=== PATIENT | male | born 1965 | race American Indian/Alaskan Native ===

== ENCOUNTER 2016-11-03 08:17 | Emergency (ER) | payer SELFPAY ==
[2016-11-03] MEDS ORDERED: MOTRIN PO ONE (09:21)
[2016-11-03] MEDS ORDERED: FLEXERIL PO ONE (09:21)
--- NOTE | 2016-11-03 09:21 | Emergency Department Report ---
ED Back Pain/Injury HPI - General Chief Complaint: Back Pain/Injury Stated Complaint: BACK PAIN Time Seen by Provider: 11/03/16 08:38 Source: patient Limitations: No Limitations - History of Present Illness Initial Comments: 51-year-old male with past medical history none presents with complaint of 3-4 days of left-sided flank pain. Denies any dysuria no hematuria no nausea no vomiting no fever no chills no difficulty breathing. Denies any direct trauma. Works driving a forklift. Denies any rash MD Complaint: back pain Onset/Timin -: days(s) Similar Symptoms Previously: No Place: home Severity: moderate Severity scale (0 -10): 6 Quality: sharp, aching Consistency: intermittent Improves With: immobilization Worsens With: deep breaths/cough Context: while lifting, turning/twisting - Related Data Previous Rx's Medication Instructions Recorded Last Taken Type Cyclobenzaprine [Flexeril] 10 mg PO TID PRN #30 tablet 05/25/15 Unknown Rx Ibuprofen [Motrin] 800 mg PO Q8HR #30 tablet 05/25/15 Unknown Rx methylPREDNISolone [Medrol Dose 4 mg PO QDAY 6 Days 05/25/15 Unknown Rx Miah] traMADol [Ultram 50 MG tab] 50 mg PO Q6HR PRN #30 tablet 05/25/15 Unknown Rx Acetaminophen/Codeine [Tylenol 1 tab PO Q6H PRN #15 tab 11/03/16 Unknown Rx /Codeine # 3 tab] Ciprofloxacin HCl [Ciprofloxacin 500 mg PO Q12HR #14 tab 11/03/16 Unknown Rx TAB] Ibuprofen [Motrin] 600 mg PO Q8H PRN #25 tablet 11/03/16 Unknown Rx Allergies Allergy/AdvReac Type Severity Reaction Status Date / Time No Known Allergies Allergy Verified 09/17/14 10:41 ED Review of Systems ROS: Stated complaint: BACK PAIN Other details as noted in HPI Constitutional: denies: chills, fever Eyes: denies: eye pain, eye discharge, vision change ENT: denies: ear pain, throat pain Respiratory: denies: cough, shortness of breath, wheezing Cardiovascular: denies: chest pain, palpitations Endocrine: no symptoms reported Gastrointestinal: denies: abdominal pain, nausea, diarrhea Genitourinary: denies: urgency, dysuria Musculoskeletal: denies: back pain, joint swelling, arthralgia Skin: denies: rash, lesions Neurological: denies: headache, weakness, paresthesias Psychiatric: denies: anxiety, depression Hematological/Lymphatic: denies: easy bleeding, easy bruising ED Past Medical Hx - Past Medical History Previous Medical History?: No - Surgical History Past Surgical History?: Yes Hx Appendectomy: Yes Additional Surgical History: LEFT FOOT - Social History Smoking Status: Current Every Day Smoker Substance Use Type: Alcohol, Non Opiate Pain, Other - Medications Home Medications: Home Medications Medication Instructions Recorded Confirmed Last Taken Type Cyclobenzaprine [Flexeril] 10 mg PO TID PRN #30 tablet 05/25/15 Unknown Rx Ibuprofen [Motrin] 800 mg PO Q8HR #30 tablet 05/25/15 Unknown Rx methylPREDNISolone [Medrol Dose 4 mg PO QDAY 6 Days 05/25/15 Unknown Rx Miah] traMADol [Ultram 50 MG tab] 50 mg PO Q6HR PRN #30 tablet 05/25/15 Unknown Rx Acetaminophen/Codeine [Tylenol 1 tab PO Q6H PRN #15 tab 11/03/16 Unknown Rx /Codeine # 3 tab] Ciprofloxacin HCl [Ciprofloxacin 500 mg PO Q12HR #14 tab 11/03/16 Unknown Rx TAB] Ibuprofen [Motrin] 600 mg PO Q8H PRN #25 tablet 11/03/16 Unknown Rx ED Physical Exam - General Limitations: No Limitations General appearance: alert, in no apparent distress - Head Head exam: Present: atraumatic, normocephalic - Eye Eye exam: Present: normal appearance, PERRL, EOMI - ENT ENT exam: Present: mucous membranes moist - Neck Neck exam: Present: normal inspection - Respiratory Respiratory exam: Present: normal lung sounds bilaterally. Absent: respiratory distress - Cardiovascular Cardiovascular Exam: Present: regular rate, normal rhythm. Absent: systolic murmur, diastolic murmur, rubs, gallop - GI/Abdominal GI/Abdominal exam: Present: soft, normal bowel sounds - Rectal Rectal exam: Present: deferred - Extremities Exam Extremities exam: Present: normal inspection - Back Exam Back exam: Present: normal inspection, CVA tenderness (L) (mild left-sided CVA/ flank tenderness) - Neurological Exam Neurological exam: Present: alert, oriented X3, CN II-XII intact, normal gait - Psychiatric Psychiatric exam: Present: normal affect, normal mood - Skin Skin exam: Present: warm, dry, intact, normal color. Absent: rash ED Course Vital Signs 11/03/16 08:22 Temperature 97.7 F Pulse Rate 67 Respiratory 20 Rate Blood Pressure 147/96 O2 Sat by Pulse 99 Oximetry ED Medical Decision Making - Lab Data Result diagrams: 11/03/16 09:47 11/03/16 09:47 - Medical Decision Making A/P: Flank pain 1-CT incidentally shows a left sided 12th rib fracture. This is unusual as it is atraumatic in nature. Patient does not recall any direct trauma to his flank.No direct blunt trauma. Patient reports no falls 2-naproxen and Tylenol 3 when necessary 3-incentive spirometry 4-follow-up with primary care doctor 5- this patient has some blood in urine with mild suggestion of cystitis on CT treat with cipro Critical care attestation.: If time is entered above; I have spent that time in minutes in the direct care of this critically ill patient, excluding procedure time. ED Disposition Clinical Impression: Acute flank pain Broken rib Qualifiers: Encounter type: initial encounter Rib fracture type: single rib Fracture type: closed Laterality: left Qualified Code(s): S22.32XA - Fracture of one rib, left side, initial encounter for closed fracture Disposition: DISCHARGED TO HOME OR SELFCARE Is pt being admited?: No Does the pt Need Aspirin: No Condition: Stable Instructions: Rib Fracture (ED), Urinary Tract Infection in Men (ED) Prescriptions: Acetaminophen/Codeine [Tylenol /Codeine # 3 tab] 1 tab PO Q6H PRN #15 tab PRN Reason: Pain Ciprofloxacin HCl [Ciprofloxacin TAB] 500 mg PO Q12HR #14 tab Ibuprofen [Motrin] 600 mg PO Q8H PRN #25 tablet PRN Reason: Pain Referrals: TOBY MACARIO MD [Staff Physician] - 3-5 Days [facility] [Provider Group] - 3-5 Days Forms: Accompanied Note, Work/School Release Form(ED) Time of Disposition: 10:44
[2016-11-03 09:31] LABS: Bilirubin,Urine NEG (Negative); Blood,Urine SM (Negative); Ketones,Urine NEG (Negative); Leukocyte Esterase,Urine NEG (Negative); Mucus,Urine FEW /HPF; Nitrite,Urine NEG (Negative); Protein,Urine <15 mg/dL mg/dL (Negative); Urobilinogen,Urine < 2.0 mg/dL (<2.0); WBC,Urine < 1.0 /HPF (0.0-6.0)
[2016-11-03 10:13] LABS: Basophils % (Auto) 1.1 % (0.0-1.8); Eosinophils % (Auto) 2.3 % (0.0-4.3); Hematocrit 44.2 % (35.5-45.6); Hemoglobin 14.6 gm/dl (11.8-15.2); Mean Corpuscular HGB Conc 33 % (32-34); Mean Corpuscular Hemoglobin 31 pg (28-32); Mean Corpuscular Volume 95 fl (84-94); Platelet Count 234 K/mm3 (140-440); Red Blood Count 4.65 M/mm3 (3.65-5.03); Red Cell Distribution Width 13.9 % (13.2-15.2); White Blood Count 6.1 K/mm3 (4.5-11.0)
--- NOTE | 2016-11-03 10:13 | Cat Scan Report ---
CT OF THE ABDOMEN AND PELVIS WITHOUT CONTRAST HISTORY: Left flank pain, hematuria. TECHNIQUE: Helical CT without contrast. Sagittal and coronal reformatted images. FINDINGS: A minimally displaced left posterior 12th rib fracture is identified. No additional acute fracture. The bladder is partially empty but there is suggestion of diffuse bladder wall thickening. Correlate for a cystitis. Within the limits of a noncontrast exam, the remaining abdominal and pelvic viscera are within normal limits. The liver, biliary system, pancreas, spleen, kidneys, and adrenal glands are unremarkable. The bowel loops are normal caliber and wall thickness. A few small scattered diverticula are noted in the descending colon. The appendix has been surgically removed. The aorta is normal caliber. No ascites, bulky adenopathy or inflammatory changes. The lung bases are clear. Normal heart size. IMPRESSION: Fracture, left posterior 12th rib. Mild diffuse bladder wall thickening is suggested. Correlate for a cystitis. There is no evidence for nephrolithiasis. Minimal diverticulosis of the distal colon.
[2016-11-03 10:23] LABS: Anion Gap 17 mmol/L; BUN/Creatinine Ratio 18.75; Blood Urea Nitrogen 15 mg/dL (9-20); Calcium 9.6 mg/dL (8.4-10.2); Carbon Dioxide 29 mmol/L (22-30); Chloride 98.7 mmol/L (98-107); Creatine Kinase 139 units/L (55-170); Glucose 99 mg/dL (75-100); Potassium 4.8 mmol/L (3.6-5.0); Sodium 140 mmol/L (137-145)
[2016-11-03 11:25] VITALS: BP 142/90
== END 2016-11-03 11:24 | disposition home or self-care (01) ==
LOC: ED 08:17
DX: S22.32XA Fracture of one rib, left side, initial encounter for closed fracture (principal); R10.9 Unspecified abdominal pain; F17.200 Nicotine dependence, unspecified, uncomplicated; X58.XXXA Exposure to other specified factors, initial encounter; Y93.9 Activity, unspecified; Y99.9 Unspecified external cause status; Y92.9 Unspecified place or not applicable
CPT/HCPCS: 36415; 74176; 80048; 81001; 82550; 85025; 87086

== ENCOUNTER 2017-01-28 07:52 | Emergency (ER) | payer SELFPAY ==
[2017-01-28 08:05] VITALS: BP 155/102
[2017-01-28] MEDS ORDERED: MOTRIN PO ONE (09:12)
--- NOTE | 2017-01-28 09:16 | Emergency Department Report ---
ED ENT HPI - General Chief complaint: Dental/Oral Stated complaint: SWOLLEN GUMS/PAIN Time Seen by Provider: 01/28/17 08:21 Source: patient Mode of arrival: Ambulatory Limitations: No Limitations - History of Present Illness Initial comments: This is a 51-year-old male nontoxic, well nourished in appearance, no acute signs of distress to [facility] ED complaining of upper gum pain 4-5 days. Patient stated that his 4 days ago made bread that was toasted and hard and patient started to eat with dentures on. Upon eating patient experienced pain but did not cause him to stop eating. Patient then started to develop pain to the gum area one day after. Patient denies any pus, drainage, fever, chills, nausea, swelling, vomiting, stiff neck, facial swelling, fever, chills, chest pain or shortness of breath. Patient denies any allergies. No significant past medical history. MD complaint: other -: Gradual, days(s) (4) Severity: mild Severity scale (0 -10): 5 Quality: aching Consistency: constant Improves with: none Worsens with: none Associated Symptoms: gum swelling. denies: fever, cough, toothache, pain with swallowing, sore throat, tinnitus, hearing loss, discharge from ear, rhinorrhea (pain) - Related Data Previous Rx's Medication Instructions Recorded Last Taken Type Cyclobenzaprine [Flexeril] 10 mg PO TID PRN #30 tablet 05/25/15 Unknown Rx Ibuprofen [Motrin] 800 mg PO Q8HR #30 tablet 05/25/15 Unknown Rx methylPREDNISolone [Medrol Dose 4 mg PO QDAY 6 Days 05/25/15 Unknown Rx Miah] traMADol [Ultram 50 MG tab] 50 mg PO Q6HR PRN #30 tablet 05/25/15 Unknown Rx Acetaminophen/Codeine [Tylenol 1 tab PO Q6H PRN #15 tab 11/03/16 Unknown Rx /Codeine # 3 tab] Ciprofloxacin HCl [Ciprofloxacin 500 mg PO Q12HR #14 tab 11/03/16 Unknown Rx TAB] Ibuprofen [Motrin] 600 mg PO Q8H PRN #25 tablet 11/03/16 Unknown Rx Ibuprofen [Motrin 600 MG tab] 600 mg PO Q8H PRN #20 tablet 01/28/17 Unknown Rx Allergies Allergy/AdvReac Type Severity Reaction Status Date / Time No Known Allergies Allergy Verified 09/17/14 10:41 ED Dental HPI - General Chief complaint: Dental/Oral Stated complaint: SWOLLEN GUMS/PAIN Time Seen by Provider: 01/28/17 08:21 Source: patient Mode of arrival: Ambulatory Limitations: No Limitations - Related Data Previous Rx's Medication Instructions Recorded Last Taken Type Cyclobenzaprine [Flexeril] 10 mg PO TID PRN #30 tablet 05/25/15 Unknown Rx Ibuprofen [Motrin] 800 mg PO Q8HR #30 tablet 05/25/15 Unknown Rx methylPREDNISolone [Medrol Dose 4 mg PO QDAY 6 Days 05/25/15 Unknown Rx Miah] traMADol [Ultram 50 MG tab] 50 mg PO Q6HR PRN #30 tablet 05/25/15 Unknown Rx Acetaminophen/Codeine [Tylenol 1 tab PO Q6H PRN #15 tab 11/03/16 Unknown Rx /Codeine # 3 tab] Ciprofloxacin HCl [Ciprofloxacin 500 mg PO Q12HR #14 tab 11/03/16 Unknown Rx TAB] Ibuprofen [Motrin] 600 mg PO Q8H PRN #25 tablet 11/03/16 Unknown Rx Ibuprofen [Motrin 600 MG tab] 600 mg PO Q8H PRN #20 tablet 01/28/17 Unknown Rx Allergies Allergy/AdvReac Type Severity Reaction Status Date / Time No Known Allergies Allergy Verified 09/17/14 10:41 ED Review of Systems ROS: Stated complaint: SWOLLEN GUMS/PAIN Other details as noted in HPI Constitutional: denies: chills, fever Eyes: denies: eye pain, eye discharge, vision change ENT: denies: ear pain, throat pain Respiratory: denies: cough, shortness of breath, wheezing Cardiovascular: denies: chest pain, palpitations Endocrine: no symptoms reported Gastrointestinal: denies: abdominal pain, nausea, diarrhea Genitourinary: denies: urgency, dysuria Musculoskeletal: denies: back pain, joint swelling, arthralgia Skin: denies: rash, lesions Neurological: denies: headache, weakness, paresthesias Psychiatric: denies: anxiety, depression Hematological/Lymphatic: denies: easy bleeding, easy bruising ED Past Medical Hx - Past Medical History Previous Medical History?: No - Surgical History Past Surgical History?: Yes Hx Appendectomy: Yes Additional Surgical History: LEFT FOOT - Social History Smoking Status: Current Every Day Smoker Substance Use Type: Alcohol - Medications Home Medications: Home Medications Medication Instructions Recorded Confirmed Last Taken Type Cyclobenzaprine [Flexeril] 10 mg PO TID PRN #30 tablet 05/25/15 Unknown Rx Ibuprofen [Motrin] 800 mg PO Q8HR #30 tablet 05/25/15 Unknown Rx methylPREDNISolone [Medrol Dose 4 mg PO QDAY 6 Days 05/25/15 Unknown Rx Miah] traMADol [Ultram 50 MG tab] 50 mg PO Q6HR PRN #30 tablet 05/25/15 Unknown Rx Acetaminophen/Codeine [Tylenol 1 tab PO Q6H PRN #15 tab 11/03/16 Unknown Rx /Codeine # 3 tab] Ciprofloxacin HCl [Ciprofloxacin 500 mg PO Q12HR #14 tab 11/03/16 Unknown Rx TAB] Ibuprofen [Motrin] 600 mg PO Q8H PRN #25 tablet 11/03/16 Unknown Rx Ibuprofen [Motrin 600 MG tab] 600 mg PO Q8H PRN #20 tablet 01/28/17 Unknown Rx ED Physical Exam - General Limitations: No Limitations General appearance: alert, in no apparent distress - Head Head exam: Present: atraumatic, normocephalic, normal inspection - Eye Eye exam: Present: normal appearance, PERRL, EOMI. Absent: scleral icterus, conjunctival injection, nystagmus, periorbital swelling, periorbital tenderness Pupils: Present: normal accommodation - ENT ENT exam: Present: normal exam, normal orophraynx, mucous membranes moist, TM's normal bilaterally, normal external ear exam - Expanded ENT Exam Expanded Mouth exam: Present: normal external inspection, tongue normal. Absent: drooling, trismus, muffled voice, tongue elevation, laceration Teeth exam: Present: normal inspection, other (no swelling noted to mouth or gums. No signs of infection noted. No gingivitis noted. No open abrasion or laceration noted.). Absent: dental caries, fractured tooth #, dental tenderness #, gingival enlargement Throat exam: Positive: normal inspection. Negative: tonsillar erythema, tonsillomegaly, tonsillar exudate, R peritonsillar mass, L peritonsillar mass - Neck Neck exam: Present: normal inspection, full ROM. Absent: tenderness, meningismus, lymphadenopathy, thyromegaly - Respiratory Respiratory exam: Present: normal lung sounds bilaterally. Absent: respiratory distress, wheezes, rales, rhonchi, stridor, chest wall tenderness, accessory muscle use, decreased breath sounds, prolonged expiratory - Cardiovascular Cardiovascular Exam: Present: regular rate, normal rhythm, normal heart sounds. Absent: bradycardia, tachycardia, irregular rhythm, systolic murmur, diastolic murmur, rubs, gallop - GI/Abdominal GI/Abdominal exam: Present: soft, normal bowel sounds. Absent: distended, tenderness, guarding, rebound, rigid - Rectal Rectal exam: Present: deferred - Extremities Exam Extremities exam: Present: normal inspection, full ROM, normal capillary refill. Absent: tenderness, pedal edema, joint swelling, calf tenderness - Back Exam Back exam: Present: normal inspection, full ROM. Absent: tenderness, CVA tenderness (R), CVA tenderness (L), muscle spasm, paraspinal tenderness, vertebral tenderness, rash noted - Neurological Exam Neurological exam: Present: alert, oriented X3, CN II-XII intact, normal gait, reflexes normal - Psychiatric Psychiatric exam: Present: normal affect, normal mood - Skin Skin exam: Present: warm, dry, intact, normal color. Absent: rash ED Course Vital Signs 01/28/17 08:03 Temperature 98.9 F Pulse Rate 68 Respiratory 16 Rate Blood Pressure 155/102 O2 Sat by Pulse 99 Oximetry - Reevaluation(s) Reevaluation #1: 01/28/17 09:18 Patient is able to speak full sentences with no signs of distress noted. ED Medical Decision Making - Medical Decision Making ED course; this is a 51-year-old male that presents with irritative pain of the gingiva Patient was examined by myself. There is no signs of inflammation, pus, drainage, or any signs of infection such as gingivitis. I notified and instructed patient that pain is related to dentures irritating the gingiva. I struck the patient to good oral hygiene and signs/symptoms such as swelling, pus , drainage, fever, chills, facial swelling, headache, blurry vision, chest pain or short of breath return to emergency room as soon as possible. Patient was also referred to a dentist to follow-up in 3-5 days. At time time of discharge, the patient does not seem toxic or ill in appearance. No acute signs of distress noted. Patient agrees to discharge treatment plan of care. No further questions noted by the patient. Critical care attestation.: If time is entered above; I have spent that time in minutes in the direct care of this critically ill patient, excluding procedure time. ED Disposition Clinical Impression: Pain of gingiva Disposition: TO HOME OR SELFCARE Is pt being admited?: No Does the pt Need Aspirin: No Condition: Stable Instructions: Ibuprofen (By mouth) Additional Instructions: Keep good oral hygiene and signs/symptoms such as swelling, pus, drainage, fever, chills, facial swelling, headache, blurry vision, chest pain or short of breath return to emergency room as soon as possible. Follow-up with dentist in 3-5 days. Take ibuprofen as prescribed for pain. Prescriptions: Ibuprofen [Motrin 600 MG tab] 600 mg PO Q8H PRN #20 tablet PRN Reason: Pain Referrals: PRIMARY CARE,MD [Primary Care Provider] - 3-5 Days [facility] [Outside] - 3-5 Days [facility] [Outside] - 3-5 Days Forms: Work/School Release Form(ED)
== END 2017-01-28 09:28 | disposition home or self-care (01) ==
LOC: ED 07:52
DX: K06.8 Other specified disorders of gingiva and edentulous alveolar ridge (principal); F17.200 Nicotine dependence, unspecified, uncomplicated
CPT/HCPCS: 99282

== ENCOUNTER 2018-11-19 16:31 | Emergency (ER) | payer SELFPAY ==
--- NOTE | 2018-11-19 16:37 | Emergency Department Report ---
Blank Doc - Documentation Documentation: This is a 53-year-old male that presents with rash and itching. No angioedema. No SOB. This initial assessment/diagnostic orders/clinical plan/treatment(s) is/are subject to change based on patient's health status, clinical progression and re- assessment by fellow clinical providers in the ED. Further treatment and workup at subsequent clinical providers discretion. Patient/guardians urged not to elope from the ED as their condition may be serious if not clinically assessed and managed. Initial orders include: 1- Patient sent to [facility] for further evaluation and treatment
[2018-11-19 16:38] VITALS: BP 144/89
--- NOTE | 2018-11-19 19:13 | Emergency Department Report ---
ED Allergic Reaction HPI - General Chief complaint: Allergic Reaction Stated complaint: SPIDER BITE/ALLERGIC REACTION Time Seen by Provider: 11/19/18 16:36 Source: patient Mode of arrival: Ambulatory Limitations: No Limitations - History of Present Illness Initial Comments: This is a 53-year-old -[place] male presents to the emergency room with a pruritic rash for 2-3 days. Patient states he was seen in an urgent care once symptoms originally started. He think he possibly got bitten by a spider and multiple spots. Patient states when he went to urgent care he was prescribed Bactrim and triamcinolone which improved abscesses but he continues to have itching with a burning sensation. He denies difficulty swallowing, tongue swelling, chest pain, dyspnea, erythema, or numbness or tingling. MD Complaint: allergic reaction Onset/Timin -: days(s) Exposure: insect bite Symptoms: rash, itching. denies: facial swelling, lip swelling, difficulty swallowing, difficulty breathing, orolingual swelling, hoarseness, syncopy, dizziness, nausea, vomiting, abdominal pain Severity: moderate Treatment Prior to Arrival: topical medicine, other (oral antibiotics) Previous Allergy History: none - Related Data Previous Rx's Medication Instructions Recorded Last Taken Type Cyclobenzaprine [Flexeril] 10 mg PO TID PRN #30 tablet 05/25/15 Unknown Rx Ibuprofen [Motrin] 800 mg PO Q8HR #30 tablet 05/25/15 Unknown Rx methylPREDNISolone [Medrol Dose 4 mg PO QDAY 6 Days pack 05/25/15 Unknown Rx Miah] traMADol [Ultram 50 MG tab] 50 mg PO Q6HR PRN #30 tablet 05/25/15 Unknown Rx Acetaminophen/Codeine [Tylenol 1 tab PO Q6H PRN #15 tab 11/03/16 Unknown Rx /Codeine # 3 tab] Ciprofloxacin HCl [Ciprofloxacin 500 mg PO Q12HR #14 tab 11/03/16 Unknown Rx TAB] Ibuprofen [Motrin] 600 mg PO Q8H PRN #25 tablet 11/03/16 Unknown Rx Ibuprofen [Motrin 600 MG tab] 600 mg PO Q8H PRN #20 tablet 01/28/17 Unknown Rx hydrOXYzine PAMOATE [Vistaril] 25 mg PO Q6HR PRN #20 capsule 11/19/18 Unknown Rx methylPREDNISolone [Medrol] 4 mg PO DAILY #1 tab.ds.pk 11/19/18 Unknown Rx Allergies Allergy/AdvReac Type Severity Reaction Status Date / Time No Known Allergies Allergy Verified 09/17/14 10:41 ED Review of Systems ROS: Stated complaint: SPIDER BITE/ALLERGIC REACTION Other details as noted in HPI Constitutional: denies: chills, fever Respiratory: denies: cough, shortness of breath, wheezing Cardiovascular: denies: chest pain, palpitations Gastrointestinal: denies: abdominal pain, nausea, diarrhea Musculoskeletal: denies: back pain, joint swelling, arthralgia Skin: rash. denies: lesions Neurological: denies: headache, weakness, paresthesias Psychiatric: denies: anxiety, depression ED Past Medical Hx - Past Medical History Previous Medical History?: No - Surgical History Past Surgical History?: Yes Hx Appendectomy: Yes Additional Surgical History: LEFT FOOT - Social History Smoking Status: Current Every Day Smoker Substance Use Type: None - Medications Home Medications: Home Medications Medication Instructions Recorded Confirmed Last Taken Type Cyclobenzaprine [Flexeril] 10 mg PO TID PRN #30 tablet 05/25/15 Unknown Rx Ibuprofen [Motrin] 800 mg PO Q8HR #30 tablet 05/25/15 Unknown Rx methylPREDNISolone [Medrol Dose 4 mg PO QDAY 6 Days pack 05/25/15 Unknown Rx Miah] traMADol [Ultram 50 MG tab] 50 mg PO Q6HR PRN #30 tablet 05/25/15 Unknown Rx Acetaminophen/Codeine [Tylenol 1 tab PO Q6H PRN #15 tab 11/03/16 Unknown Rx /Codeine # 3 tab] Ciprofloxacin HCl [Ciprofloxacin 500 mg PO Q12HR #14 tab 11/03/16 Unknown Rx TAB] Ibuprofen [Motrin] 600 mg PO Q8H PRN #25 tablet 11/03/16 Unknown Rx Ibuprofen [Motrin 600 MG tab] 600 mg PO Q8H PRN #20 tablet 01/28/17 Unknown Rx hydrOXYzine PAMOATE [Vistaril] 25 mg PO Q6HR PRN #20 capsule 11/19/18 Unknown Rx methylPREDNISolone [Medrol] 4 mg PO DAILY #1 tab.ds.pk 11/19/18 Unknown Rx ED Physical Exam - General Limitations: No Limitations General appearance: alert, in no apparent distress, obese - ENT ENT exam: Present: normal orophraynx (uvula midline), mucous membranes moist - Respiratory Respiratory exam: Present: normal lung sounds bilaterally. Absent: respiratory distress - Cardiovascular Cardiovascular Exam: Present: regular rate, normal rhythm. Absent: systolic murmur, diastolic murmur, rubs, gallop - GI/Abdominal GI/Abdominal exam: Present: soft, normal bowel sounds - Neurological Exam Neurological exam: Present: alert, oriented X3, normal gait - Psychiatric Psychiatric exam: Present: normal affect, normal mood - Skin Skin exam: Present: warm, dry, intact, normal color, rash (erythematous maculopapular rash to bilateral upper extremity and bilateral lower extremity, blanchable), erythema ED Course Vital Signs 11/19/18 16:36 Temperature 98.1 F Pulse Rate 78 Respiratory 18 Rate Blood Pressure 144/89 O2 Sat by Pulse 98 Oximetry ED Medical Decision Making - Medical Decision Making Patient was examined by me. Vitals are normal and patient is in no acute distress. Given dexamethasone 8 mg IM while in the ER. Findings are susceptible of allergic reaction to insect. On focal exam negative or oropharyngeal swelling. Patient informed of results. Instructed to continue taking Bactrim. Start Medrol Dosepak and Vistaril. Plan discussed with patient to discharge home and treat outpatient. He agrees with ER plan. Patient discharged home in stable condition. Follow up with PCP in 2-3 days. Critical care attestation.: If time is entered above; I have spent that time in minutes in the direct care of this critically ill patient, excluding procedure time. ED Disposition Clinical Impression: Allergic reaction to insect bite, Pruritic rash Insect bite Qualifiers: Encounter type: initial encounter Site of insect bite: upper arm Laterality: unspecified laterality Qualified Code(s): S40.869A - Insect bite (nonvenomous) of unspecified upper arm, initial encounter; W57.XXXA - Bitten or stung by nonvenomous insect and other nonvenomous arthropods, initial encounter Disposition: DC-01 TO HOME OR SELFCARE Is pt being admited?: No Does the pt Need Aspirin: No Condition: Stable Instructions: Insect Bite or Sting (ED) Additional Instructions: Continue taking Bactrim antibiotic prescribed from urgent care. Return to the emergency room is difficulty swallowing, swelling, redness, or increased itching. Prescriptions: methylPREDNISolone [Medrol] 4 mg PO DAILY #1 tab.ds.pk hydrOXYzine PAMOATE [Vistaril] 25 mg PO Q6HR PRN #20 capsule PRN Reason: Itching Referrals: ANATOLIY CABA MD [Primary Care Provider] - 3-5 Days [facility] [Outside] - 3-5 Days [facility] [Outside] - 3-5 Days Forms: Work/School Release Form(ED) Time of Disposition: 19:17
[2018-11-19] MEDS ORDERED: DECADRON IM ONE (19:18)
== END 2018-11-19 19:41 | disposition home or self-care (01) ==
LOC: ED 16:31
DX: S40.869A Insect bite (nonvenomous) of unspecified upper arm, initial encounter (principal); W57.XXXA Bitten or stung by nonvenomous insect and other nonvenomous arthropods, initial encounter; F17.200 Nicotine dependence, unspecified, uncomplicated; Z91.038 Other insect allergy status; Z90.89 Acquired absence of other organs; Y93.89 Activity, other specified; Y92.89 Other specified places as the place of occurrence of the external cause; Y99.8 Other external cause status
CPT/HCPCS: 96372; 99282; J1100

== ENCOUNTER 2019-02-25 13:20 | Emergency (ER) | payer SELFPAY ==
[2019-02-25 13:36] VITALS: BP 136/89
--- NOTE | 2019-02-25 13:40 | Emergency Department Report ---
ED Eye Problem HPI - General Chief complaint: Eye Problems Stated complaint: (L) EYE PAIN Time Seen by Provider: 02/25/19 13:35 Source: patient Mode of arrival: Ambulatory Limitations: No Limitations - History of Present Illness Initial comments: pt is a 53 yo male who presents to the ED right eye pain and erythema that began three days ago. pt presents with yellow/green drainage. having itching and burning of the eye. Pt does not wear contacts. no vision changes. did not get anything in the eye. no sick contacts/. has been rubbing the eye frequently. - Related Data Previous Rx's Medication Instructions Recorded Last Taken Type Cyclobenzaprine [Flexeril] 10 mg PO TID PRN #30 tablet 05/25/15 Unknown Rx Ibuprofen [Motrin] 800 mg PO Q8HR #30 tablet 05/25/15 Unknown Rx methylPREDNISolone [Medrol Dose 4 mg PO QDAY 6 Days pack 05/25/15 Unknown Rx Miah] traMADol [Ultram 50 MG tab] 50 mg PO Q6HR PRN #30 tablet 05/25/15 Unknown Rx Acetaminophen/Codeine [Tylenol 1 tab PO Q6H PRN #15 tab 11/03/16 Unknown Rx /Codeine # 3 tab] Ciprofloxacin HCl [Ciprofloxacin 500 mg PO Q12HR #14 tab 11/03/16 Unknown Rx TAB] Ibuprofen [Motrin] 600 mg PO Q8H PRN #25 tablet 11/03/16 Unknown Rx Ibuprofen [Motrin 600 MG tab] 600 mg PO Q8H PRN #20 tablet 01/28/17 Unknown Rx hydrOXYzine PAMOATE [Vistaril] 25 mg PO Q6HR PRN #20 capsule 11/19/18 Unknown Rx methylPREDNISolone [Medrol] 4 mg PO DAILY #1 tab.ds.pk 11/19/18 Unknown Rx Erythromycin [Erythromycin Ophth 1 applic OS QID 5 Days #1 tube 02/25/19 Unknown Rx Oint] Allergies Allergy/AdvReac Type Severity Reaction Status Date / Time No Known Allergies Allergy Verified 02/25/19 13:20 ED Review of Systems ROS: Stated complaint: (L) EYE PAIN Other details as noted in HPI Comment: All other systems reviewed and negative ED Past Medical Hx - Past Medical History Previous Medical History?: No - Surgical History Hx Appendectomy: Yes Additional Surgical History: LEFT FOOT - Social History Smoking Status: Unknown if ever smoked Substance Use Type: None - Medications Home Medications: Home Medications Medication Instructions Recorded Confirmed Last Taken Type Cyclobenzaprine [Flexeril] 10 mg PO TID PRN #30 tablet 05/25/15 Unknown Rx Ibuprofen [Motrin] 800 mg PO Q8HR #30 tablet 05/25/15 Unknown Rx methylPREDNISolone [Medrol Dose 4 mg PO QDAY 6 Days pack 05/25/15 Unknown Rx Miah] traMADol [Ultram 50 MG tab] 50 mg PO Q6HR PRN #30 tablet 05/25/15 Unknown Rx Acetaminophen/Codeine [Tylenol 1 tab PO Q6H PRN #15 tab 11/03/16 Unknown Rx /Codeine # 3 tab] Ciprofloxacin HCl [Ciprofloxacin 500 mg PO Q12HR #14 tab 11/03/16 Unknown Rx TAB] Ibuprofen [Motrin] 600 mg PO Q8H PRN #25 tablet 11/03/16 Unknown Rx Ibuprofen [Motrin 600 MG tab] 600 mg PO Q8H PRN #20 tablet 01/28/17 Unknown Rx hydrOXYzine PAMOATE [Vistaril] 25 mg PO Q6HR PRN #20 capsule 11/19/18 Unknown Rx methylPREDNISolone [Medrol] 4 mg PO DAILY #1 tab.ds.pk 11/19/18 Unknown Rx Erythromycin [Erythromycin Ophth 1 applic OS QID 5 Days #1 tube 02/25/19 Unknown Rx Oint] ED Physical Exam - General Limitations: No Limitations General appearance: alert, in no apparent distress - Head Head exam: Present: atraumatic, normocephalic - Eye Eye exam: Present: conjunctival injection (left), other (small erythematous area of swelling to the left upper eyelid consistent with horedeolum) - ENT ENT exam: Present: mucous membranes moist - Respiratory Respiratory exam: Present: normal lung sounds bilaterally. Absent: respiratory distress, wheezes, rales, rhonchi, stridor, chest wall tenderness, accessory muscle use, decreased breath sounds, prolonged expiratory - Cardiovascular Cardiovascular Exam: Present: regular rate, normal rhythm, normal heart sounds. Absent: systolic murmur, diastolic murmur, rubs, gallop - Neurological Exam Neurological exam: Present: alert, oriented X3 - Psychiatric Psychiatric exam: Present: normal affect, normal mood - Skin Skin exam: Present: warm, dry, intact ED Course Vital Signs 08/21/19 13:26 Temperature 98.2 F Pulse Rate 90 Respiratory 18 Rate Blood Pressure 136/89 O2 Sat by Pulse 97 Oximetry ED Medical Decision Making - Medical Decision Making pt is a 53 yo male who presents to the ED right eye pain and erythema that began three days ago. pt presents with yellow/green drainage. having itching and burning of the eye. Pt does not wear contacts. no vision changes. did not get anything in the eye. no sick contacts/. has been rubbing the eye frequently. no allergies. vitals are normal. on exam: small erythematous area of swelling to the left upper eyelid consistent with horedeolum, left conjunctival injection consistent with conjunctivitis. pt given prescription for erythromycin. advised pt to please use medication as prescribed. please use warm compresses three times a day. please wash the eyelid and your hands frequently. if symptoms do not improve please see an trauma nurse. return to the emergency room for any new or worsening symptoms. - Differential Diagnosis blepharitis, conjunctivitis, chalazion, hordeolum Critical care attestation.: If time is entered above; I have spent that time in minutes in the direct care of this critically ill patient, excluding procedure time. ED Disposition Clinical Impression: Hordeolum Qualifiers: Hordeolum type: internum Laterality: left Eyelid: upper Qualified Code(s): H00.024 - Hordeolum internum left upper eyelid Conjunctivitis Qualifiers: Conjunctivitis type: acute Acute conjunctivitis type: unspecified Laterality: left Qualified Code(s): H10.32 - Unspecified acute conjunctivitis, left eye Disposition: DC- TO HOME OR SELFCARE Is pt being admited?: No Does the pt Need Aspirin: No Condition: Stable Instructions: Conjunctivitis (ED), Stye (ED) Additional Instructions: please use medication as prescribed. please use warm compresses three times a day. please wash the eyelid and your hands frequently. if symptoms do not improve please see an trauma nurse. return to the emergency room for any new or worsening symptoms. Prescriptions: Erythromycin [Erythromycin Ophth Oint] 1 applic OS QID 5 Days #1 tube Referrals: VINAY SORENSEN MD [Staff Physician] - as needed TURNER ANDUJAR MD [Staff Physician] - as needed Time of Disposition: 13:48 Print Language: SWEDISH
== END 2019-02-25 13:59 | disposition home or self-care (01) ==
LOC: ED 13:20
DX: H00.014 Hordeolum externum left upper eyelid (principal); H10.9 Unspecified conjunctivitis; Z90.49 Acquired absence of other specified parts of digestive tract; Z79.899 Other long term (current) drug therapy

== ENCOUNTER 2020-04-20 13:16 | Emergency (ER) | payer OTHER ==
[2020-04-20 14:01] VITALS: BP 177/121
--- NOTE | 2020-04-20 15:13 | XRay Report ---
CHEST 2 VIEWS INDICATION: SOB, cough. COMPARISON: None FINDINGS: Support devices: None. Heart: Within normal limits. Lungs/pleura: No acute air space or interstitial disease. No pneumothorax. Additional findings: None. IMPRESSION: No acute findings. Signer Name: Mario Alberto Ackerman Jr, MD Signed: 04/20/2020 3:08 PM Workstation Name: [id number]
--- NOTE | 2020-04-20 16:14 | Emergency Department Report ---
- General Chief Complaint: Upper Respiratory Infection Stated Complaint: SOB/COUGH/SNEEZING Source: patient Mode of arrival: Ambulatory Limitations: No Limitations - History of Present Illness Initial Comments: pt is a 54 yo male who presents to the ED with c/o productive cough that began 3 days ago. he has associated mucus production. He states that he is also been having sneezing, chest discomfort after frequent coughing, diarrhea. He denies any rhinorrhea, fever, nausea, vomiting, shortness of breath, sore throat, ear pain. He denies any known sick contacts. He denies any recent travel. No past medical history. - Related Data Previous Rx's Medication Instructions Recorded Last Taken Type Cyclobenzaprine [Flexeril] 10 mg PO TID PRN #30 tablet 05/25/15 Unknown Rx Ibuprofen [Motrin] 800 mg PO Q8HR #30 tablet 05/25/15 Unknown Rx methylPREDNISolone [Medrol Dose 4 mg PO QDAY 6 Days pack 05/25/15 Unknown Rx Cynthia] traMADoL [Ultram 50 MG tab] 50 mg PO Q6HR PRN #30 tablet 05/25/15 Unknown Rx Acetaminophen/Codeine [Tylenol 1 tab PO Q6H PRN #15 tab 11/03/16 Unknown Rx /Codeine # 3 tab] Ciprofloxacin HCl [Ciprofloxacin 500 mg PO Q12HR #14 tab 11/03/16 Unknown Rx TAB] Ibuprofen [Motrin] 600 mg PO Q8H PRN #25 tablet 11/03/16 Unknown Rx Ibuprofen [Motrin 600 MG tab] 600 mg PO Q8H PRN #20 tablet 01/28/17 Unknown Rx hydrOXYzine PAMOATE [Vistaril] 25 mg PO Q6HR PRN #20 capsule 11/19/18 Unknown Rx methylPREDNISolone [Medrol] 4 mg PO DAILY #1 tab.ds.pk 11/19/18 Unknown Rx Erythromycin [Erythromycin Ophth 1 applic OS QID 5 Days #1 tube 02/25/19 Unknown Rx Oint] Albuterol Sulfate [Proventil Hfa] 6.7 gm IH TID PRN #1 hfa.aer.ad 04/20/20 Unknown Rx Azithromycin [Zithromax Z-CYNTHIA] 250 mg PO DAILY 5 Days #6 tablet 04/20/20 Unknown Rx Benzonatate [Tessalon Perles] 100 mg PO Q8HR PRN #10 capsule 04/20/20 Unknown Rx Prednisone [predniSONE 10 mg 10 mg PO .TAPER #1 tab.ds.pk 04/20/20 Unknown Rx (6-Day Pack, 21 Tabs)] Allergies Allergy/AdvReac Type Severity Reaction Status Date / Time No Known Allergies Allergy Verified 02/25/19 13:20 ED Review of Systems ROS: Stated complaint: SOB/COUGH/SNEEZING Other details as noted in HPI Comment: All other systems reviewed and negative ED Past Medical Hx - Past Medical History Previous Medical History?: No - Surgical History Past Surgical History?: Yes Hx Appendectomy: Yes Additional Surgical History: LEFT FOOT - Social History Smoking Status: Unknown if ever smoked Substance Use Type: None - Medications Home Medications: Home Medications Medication Instructions Recorded Confirmed Last Taken Type Cyclobenzaprine [Flexeril] 10 mg PO TID PRN #30 tablet 05/25/15 Unknown Rx Ibuprofen [Motrin] 800 mg PO Q8HR #30 tablet 05/25/15 Unknown Rx methylPREDNISolone [Medrol Dose 4 mg PO QDAY 6 Days pack 05/25/15 Unknown Rx Cynthia] traMADoL [Ultram 50 MG tab] 50 mg PO Q6HR PRN #30 tablet 05/25/15 Unknown Rx Acetaminophen/Codeine [Tylenol 1 tab PO Q6H PRN #15 tab 11/03/16 Unknown Rx /Codeine # 3 tab] Ciprofloxacin HCl [Ciprofloxacin 500 mg PO Q12HR #14 tab 11/03/16 Unknown Rx TAB] Ibuprofen [Motrin] 600 mg PO Q8H PRN #25 tablet 11/03/16 Unknown Rx Ibuprofen [Motrin 600 MG tab] 600 mg PO Q8H PRN #20 tablet 01/28/17 Unknown Rx hydrOXYzine PAMOATE [Vistaril] 25 mg PO Q6HR PRN #20 capsule 11/19/18 Unknown Rx methylPREDNISolone [Medrol] 4 mg PO DAILY #1 tab.ds.pk 11/19/18 Unknown Rx Erythromycin [Erythromycin Ophth 1 applic OS QID 5 Days #1 tube 02/25/19 Unknown Rx Oint] Albuterol Sulfate [Proventil Hfa] 6.7 gm IH TID PRN #1 hfa.aer.ad 04/20/20 Unknown Rx Azithromycin [Zithromax Z-CYNTHIA] 250 mg PO DAILY 5 Days #6 tablet 04/20/20 Unknown Rx Benzonatate [Tessalon Perles] 100 mg PO Q8HR PRN #10 capsule 04/20/20 Unknown Rx Prednisone [predniSONE 10 mg 10 mg PO .TAPER #1 tab.ds.pk 04/20/20 Unknown Rx (6-Day Pack, 21 Tabs)] ED Physical Exam - General Limitations: No Limitations General appearance: alert, in no apparent distress - Head Head exam: Present: atraumatic, normocephalic - Eye Eye exam: Present: normal appearance - ENT ENT exam: Present: mucous membranes moist - Respiratory Respiratory exam: Present: normal lung sounds bilaterally. Absent: respiratory distress, wheezes, rales, rhonchi, stridor, chest wall tenderness, accessory muscle use, decreased breath sounds, prolonged expiratory - Cardiovascular Cardiovascular Exam: Present: regular rate, normal rhythm, normal heart sounds. Absent: systolic murmur, diastolic murmur, rubs, gallop - Neurological Exam Neurological exam: Present: alert, oriented X3 - Psychiatric Psychiatric exam: Present: normal affect, normal mood - Skin Skin exam: Present: warm, dry, intact ED Course Vital Signs 04/20/20 14:00 Temperature 98.1 F Pulse Rate 82 Respiratory 18 Rate Blood Pressure 177/121 O2 Sat by Pulse 97 Oximetry ED Medical Decision Making - Radiology Data Radiology results: report reviewed CHEST 2 VIEWS INDICATION: SOB, cough. COMPARISON: None FINDINGS: Support devices: None. Heart: Within normal limits. Lungs/pleura: No acute air space or interstitial disease. No pneumothorax. Additional findings: None. IMPRESSION: No acute findings. Signer Name: Mario Alberto Ackerman Jr, MD Signed: 04/20/2020 2:08 PM Workstation Name: [id number] - Medical Decision Making pt is a 54 yo male who presents to the ED with c/o productive cough that began 3 days ago. he has associated mucus production. He states that he is also been having sneezing, chest discomfort after frequent coughing, diarrhea. He denies any rhinorrhea, fever, nausea, vomiting, shortness of breath, sore throat, ear pain. He denies any known sick contacts. He denies any recent travel. No past medical history. Initial triage vitals with elevated blood pressure, otherwise normal. On repeat of vitals O2 sat 98% on RA, heart rate 74 bpm, blood pressure 172/109. Discussed patient's elevated blood pressure, discussed diet and lifestyle modifications, discussed the importance of close primary care follow- up regarding blood pressure. CXR: IMPRESSION: No acute findings. Discussed all results with patient. Patient is presenting with the symptoms during COVID-19 pandemic, discussed the possibility of COVID-19 with patient, discussed strict return precautions, discussed outpatient testing, discussed self quarantine. Patient will be treated for acute bronchitis, given that he is having thick mucus production, will cover patient with antibiotics. advised pt Please take medication as prescribed. Please increase your fluid intake over the next several days. May take Tylenol as needed for fever or body aches. May take [id number] cold symptom relief medication such as Mucinex or TheraFlu. Follow-up with a primary care doctor for reexamination. Return to emergency room immediately for any new or worsening symptoms including but not limited to difficulty breathing, shortness of breath, severe chest pain, unable to tolerate by mouth intake, etc. Please self quarantine for 2 weeks from the onset of your symptoms. Please do not go out in public. If you are around others at home please wear a mask. If you need to cough or sneeze please do so in a napkin and immediately throw it away and immediately wash your hands. Wash your hands frequently. Wipe everything down. Recommend for you to get COVID-19 testing, may have this done at primary care doctor, health department, [facility] testing centers. Please follow-up with your primary care doctor regarding the elevation in your blood pressure during today's visit. Eat a low-sodium diet. Increase your water intake. Incorporate 30 to 60 minutes of daily exercise. Keep a blood pressure log. - Differential Diagnosis PNA, URI, acute bronchitis, COVID-19, influenza, viral syndrome Critical care attestation.: If time is entered above; I have spent that time in minutes in the direct care of this critically ill patient, excluding procedure time. ED Disposition Clinical Impression: Elevated blood pressure reading Acute bronchitis Qualifiers: Bronchitis organism: unspecified organism Qualified Code(s): J20.9 - Acute bronchitis, unspecified Disposition: DC-01 TO HOME OR SELFCARE Is pt being admited?: No Does the pt Need Aspirin: No Condition: Stable Instructions: COVID-19, Acute Bronchitis (ED), Low Sodium Diet (ED) Additional Instructions: Please take medication as prescribed. Please increase your fluid intake over the next several days. May take Tylenol as needed for fever or body aches. May take [id number] cold symptom relief medication such as Mucinex or TheraFlu. Follow-up with a primary care doctor for reexamination. Return to emergency room immediately for any new or worsening symptoms including but not limited to difficulty breathing, shortness of breath, severe chest pain, unable to tolerate by mouth intake, etc. Please self quarantine for 2 weeks from the onset of your symptoms. Please do not go out in public. If you are around others at home please wear a mask. If you need to cough or sneeze please do so in a napkin and immediately throw it away and immediately wash your hands. Wash your hands frequently. Wipe everything down. Recommend for you to get COVID-19 testing, may have this done at primary care doctor, health department, [facility] [address] testing centers. Please follow-up with your primary care doctor regarding the elevation in your blood pressure during today's visit. Eat a low-sodium diet. Increase your water intake. Incorporate 30 to 60 minutes of daily exercise. Keep a blood pressure log. Prescriptions: Prednisone [predniSONE 10 mg (6-Day Pack, 21 Tabs)] 10 mg PO .TAPER #1 tab.ds.pk Albuterol Sulfate [Proventil Hfa] 6.7 gm IH TID PRN #1 hfa.aer.ad PRN Reason: Shortness Of Breath Benzonatate [Tessalon Perles] 100 mg PO Q8HR PRN #10 capsule PRN Reason: cough Azithromycin [Zithromax Z-CYNTHIA] 250 mg PO DAILY 5 Days #6 tablet Referrals: PRIMARY CARE, [Primary Care Provider] - 2-3 Days Forms: Work/School Release Form(ED) Time of Disposition: 16:42 Print Language: PORTUGUESE
== END 2020-04-20 17:20 | disposition home or self-care (01) ==
LOC: ED 13:16
DX: J20.9 Acute bronchitis, unspecified (principal); R03.0 Elevated blood-pressure reading, without diagnosis of hypertension; Z90.49 Acquired absence of other specified parts of digestive tract; Z98.890 Other specified postprocedural states; Z79.1 Long term (current) use of non-steroidal anti-inflammatories (NSAID); Z79.2 Long term (current) use of antibiotics; Z79.899 Other long term (current) drug therapy
CPT/HCPCS: 71046